=== PATIENT | female | born 1985 | race African-American/Black ===

== ENCOUNTER 2017-11-27 08:00 | Inpatient (IN) ==
[2017-11-27] MEDS ORDERED: LACTATED RINGERS 1,000 ML IV ONE (11:32)
[2017-11-27] MEDS ORDERED: FAMOTIDINE 20 MG/2 ML VIAL IV ONE (11:36)
[2017-11-27] MEDS ORDERED: diphenhydrAMINE 50 MG/1 ML VIAL IV PRN ×2 (11:36)
[2017-11-27] MEDS ORDERED: hydrOXYzine HCL 25 MG/1 ML VIAL IM PRN (11:36)
[2017-11-27] MEDS ORDERED: PROMETHAZINE 25 MG/1 ML VIAL IM ONE (11:36)
[2017-11-27] MEDS ORDERED: ePHEDrine 50 MG/ML AMP IV PRN ×2 (11:36)
[2017-11-27] MEDS ORDERED: CITRIC ACID/SODIUM CITRATE 30 ML UDCUP PO ONE (11:36)
[2017-11-27] MEDS ORDERED: ONDANSETRON 4 MG/2 ML VIAL IV PRN ×2 (11:40→21:30)
[2017-11-27] MEDS ORDERED: fentaNYL 2 MCG/ROPIV 0.2% EPID 150 ML EPIDURAL SCH (12:00)
[2017-11-27] MEDS ORDERED: OXYTOCIN/LR 20 UNIT/1,000 ML BAG IV SCH (12:00)
[2017-11-27 12:01] LABS: Basophils % 0.3 % (0.0-0.8); Eosinophils % 0.2 % (0.00-10.9); Hematocrit 33.3 VOL% (35.7-47.0); Hemoglobin 10.8 GM/DL (12.0-16.0); Immature Granulocytes % 1.4 %; Immature Granulocytes Absolute 0.16 #; Lymphocytes % 8.6 % (21.3-54.2); Mean Corpuscular HGB Conc 32.4 GM/DL (32-36); Mean Corpuscular Hemoglobin 28 PG (27-34); Mean Corpuscular Volume 87.2 FL (87-102); Monocytes # 0.8 10*3/uL (0.11-0.8); Monocytes % 7.2 % (1.7-12.7); Neutrophils # 9.3 10*3/uL (1.4-7.4); Neutrophils % 82.3 % (38.7-73.9); Platelet Count 260 T/CUMM (130-400); Red Blood Count 3.82 MC/CUMM (3.8-5.5); White Blood Count 11.3 T/CUMM (4-12)
[2017-11-27 12:34] LABS: Albumin 2.9 G/DL (3.4-5.0); Bilirubin,Total 0.6 MG/DL (0.2-1.0); Calcium 8.7 MG/DL (8.5-10.1); Osmolality,Calculated 274.5 MOS/KG (273-304); Potassium 4.3 MMOL/L (3.5-5.1); Total Protein 6.7 G/DL (6.4-8.3)
[2017-11-27] MEDS: LACTATED RINGERS 1,000 ML IV SCH ×2 (13:05→18:49)
[2017-11-27] MEDS: BUTORPHANOL 1 MG/ML VIAL IV PRN ×2 (13:06→15:22)
[2017-11-27] MEDS ORDERED: METHYLERGONOVINE 0.2 MG/1 ML AMP ONE (16:18)
[2017-11-27] MEDS ORDERED: miSOPROStol 200 MCG TABLET ONE (16:18)
[2017-11-27 21:23] LABS: Cord Arterial Blood HCO3 16.6 MMOL/L
[2017-11-27 21:26] LABS: Cord Venous Blood HCO3 18.2 MMOL/L; Cord Venous Blood PCO2 46.6 MMHG; Cord Venous Blood PO2 19.2
[2017-11-27] MEDS ORDERED: ACETAMINOPHEN 325 MG TABLET PO PRN (21:30)
[2017-11-27] MEDS ORDERED: OXYTOCIN/LR 20 UNIT/1,000 ML BAG IV ONE (21:30)
[2017-11-27] MEDS ORDERED: MEASLES/MUMPS/RUBELLA VACCINE 0.5 ML VIAL SUBCUT ONE (21:30)
[2017-11-27] MEDS ORDERED: BISACODYL 10 MG SUPP RECTAL PRN (21:30)
[2017-11-27] MEDS ORDERED: BENZOCAINE 20%/MENTHOL 0.5% SPRAY 56 GM CAN TOP PRN (21:30)
[2017-11-27] MEDS ORDERED: RHO(D) IMMUNE GLOBULIN 300 MCG SYRINGE IM ONE (21:30)
[2017-11-27] MEDS ORDERED: LANOLIN 50% CREAM 0.3 OZ TUBE TOP PRN (21:30)
[2017-11-27] MEDS ORDERED: IBUPROFEN 800 MG TABLET PO PRN (21:30)
[2017-11-27] MEDS ORDERED: oxyCODONE/ACETAMINOPHEN 5-325 MG TABLET PO PRN (21:30)
[2017-11-27] MEDS ORDERED: WITCH HAZEL PADS 100/JAR TOP PRN (21:30)
[2017-11-27] MEDS ORDERED: DIPH/TET/ACEL PERT BOOSTER VACCINE 0.5 ML VIAL IM ONE (21:30)
[2017-11-27] MEDS ORDERED: HYDROCORTISONE 2.5% RECTAL CREAM 30 GM TUBE TOP PRN (21:30)
[2017-11-28] MEDS: oxyCODONE/ACETAMINOPHEN 5-325 MG TABLET PO PRN ×3 (00:03→15:26)
[2017-11-28] MEDS: LACTATED RINGERS 1,000 ML IV SCH (01:26)
[2017-11-28 06:53] LABS: Basophils % 0.2 % (0.0-0.8); Hematocrit 26.9 VOL% (35.7-47.0); Hemoglobin 8.5 GM/DL (12.0-16.0); Immature Granulocytes % 0.9 %; Immature Granulocytes Absolute 0.18 #; Lymphocytes # 1.5 10*3/uL (1.4-4.0); Lymphocytes % 7.3 % (21.3-54.2); Mean Corpuscular HGB Conc 31.6 GM/DL (32-36); Mean Corpuscular Hemoglobin 28 PG (27-34); Mean Corpuscular Volume 88.5 FL (87-102); Mean Platelet Volume 12.2 FL (9.6-12.0); Monocytes # 1.6 10*3/uL (0.11-0.8); Monocytes % 7.5 % (1.7-12.7); Neutrophils # 17.7 10*3/uL (1.4-7.4); Neutrophils % 84.1 % (38.7-73.9); Platelet Count 205 T/CUMM (130-400); Red Blood Count 3.04 MC/CUMM (3.8-5.5); Red Cell Distribution Width 15.1 % (9.3-17.3)
[2017-11-28 07:26] LABS: Hypochromasia 2+; Lymphocytes 6 % (20-55); Platelet Estimate Adequate; Segmented Neutrophils 91 % (50-85); Total Cells Counted 100
[2017-11-28] MEDS ORDERED: FUROSEMIDE 20 MG/2 ML VIAL IV ONE (08:02)
[2017-11-28] MEDS: DOCUSATE SODIUM 100 MG CAPSULE PO SCH ×2 (17:49→21:04)
[2017-11-28] MEDS: MULTIVITAMIN (PRENATAL) TABLET PO SCH (17:49)
[2017-11-29] MEDS: oxyCODONE/ACETAMINOPHEN 5-325 MG TABLET PO PRN (02:33)
[2017-11-29 09:08] VITALS: BP 138/80
[2017-11-29] MEDS: MULTIVITAMIN (PRENATAL) TABLET PO SCH (10:17)
[2017-11-29] MEDS: DOCUSATE SODIUM 100 MG CAPSULE PO SCH (10:17)
== END 2017-11-29 12:15 | disposition home or self-care (01) | DRG 774 ==
LOC: N.LDOUT 08:00 → N.LD 08:07
PROVIDERS: ADMIT Specialist; ATTEND Specialist

== ENCOUNTER 2019-12-13 08:26 | Inpatient (IN) ==
[2019-12-13] MEDS ORDERED: MEPERIDINE 50 MG/1 ML VIAL IV PRN (09:12)
[2019-12-13] MEDS ORDERED: BUTORPHANOL 2 MG/ML VIAL IV PRN (09:12)
[2019-12-13] MEDS ORDERED: TERBUTALINE 1 MG/1 ML VIAL SUBCUT PRN (09:12)
[2019-12-13] MEDS ORDERED: ONDANSETRON 4 MG/2 ML VIAL IV PRN ×2 (09:12→14:48)
[2019-12-13] MEDS ORDERED: miSOPROStoL 200 MCG TABLET VAG PRN (09:12)
[2019-12-13] MEDS ORDERED: LIDOCAINE 1% 50 ML VIAL MISC INJ ONE (09:12)
[2019-12-13] MEDS ORDERED: CARBOPROST TROMETHAMINE 250 MCG/ML AMP IM PRN (09:12)
[2019-12-13] MEDS ORDERED: OXYTOCIN/LR 20 UNIT/1,000 ML BAG IV SCH (09:30)
[2019-12-13] MEDS ORDERED: LACTATED RINGERS 1,000 ML IV SCH (09:30)
[2019-12-13 09:49] LABS: Basophils % 0.2 % (0.0-0.8); Eosinophils % 0.3 % (0.00-10.9); Hemoglobin 10.5 GM/DL (12.0-16.0); Immature Granulocytes % 0.5 %; Immature Granulocytes Absolute 0.06 #; Lymphocytes # 1.3 10*3/uL (1.4-4.0); Lymphocytes % 11.6 % (21.3-54.2); Mean Corpuscular HGB Conc 31.8 GM/DL (32-36); Mean Corpuscular Volume 88.5 FL (87-102); Mean Platelet Volume 11.1 FL (9.6-12.0); Monocytes % 7.9 % (1.7-12.7); Neutrophils % 79.5 % (38.7-73.9); Platelet Count 249 T/CUMM (130-400); Red Blood Count 3.73 MC/CUMM (3.8-5.5); Red Cell Distribution Width 14.2 % (9.3-17.3); White Blood Count 11.6 T/CUMM (4-12)
[2019-12-13 10:07] LABS: Alanine Aminotransferase 10 U/L (13-56); Albumin 2.5 G/DL (3.4-5.0); Alkaline Phosphatase 186 U/L (45-117); Aspartate Amino Transferase 15 U/L (0-37); Bilirubin,Total < 0.39 MG/DL (0.2-1.0); Blood Urea Nitrogen 7 MG/DL (7-18); Calcium 9.1 MG/DL (8.5-10.1); Estimated Glom Filtration Rate 145 ML/MIN; Glucose 79 MG/DL (74-106); Osmolality,Calculated 264.2 MOS/KG (273-304); Total Protein 6.8 G/DL (6.4-8.3)
[2019-12-13] MEDS ORDERED: LACTATED RINGERS 1,000 ML IV ONE (10:41)
[2019-12-13] MEDS ORDERED: ePHEDrine 50 MG/ML AMP IV PRN (10:41)
[2019-12-13] MEDS ORDERED: FAMOTIDINE 20 MG/2 ML VIAL IV ONE (10:41)
[2019-12-13] MEDS ORDERED: CITRIC ACID/SODIUM CITRATE 30 ML UDCUP PO ONE (10:41)
[2019-12-13] MEDS ORDERED: fentaNYL 2 MCG/ROPIV 0.2% EPID 100 ML EPIDURAL ONE (10:52)
[2019-12-13] MEDS ORDERED: fentaNYL 2 MCG/ROPIV 0.2% EPID 100 ML EPIDURAL SCH (11:00)
[2019-12-13 13:49] LABS: Apearance,Urine Clear (Clear); Glucose,Urine (UA) Negative (Negative); Ketones,Urine 100 mg/dL (Negative); Mucus,Urine Occasional /LPF (Occasional); Nitrite,Urine Negative (Negative); Protein,Urine Negative; Squamous Epithelial Cell,Urine Occasional /HPF (0-10); Urine Color Yellow (Yellow)
[2019-12-13 13:50] LABS: Bilirubin,Urine Negative (Negative); Blood, Urine Negative (Negative); Urine Urobilinogen 0.2 EU/DL (0.2-1.0)
[2019-12-13] MEDS ORDERED: ACETAMINOPHEN 325 MG TABLET PO PRN (14:48)
[2019-12-13] MEDS ORDERED: HYDROCORTISONE 2.5% RECTAL CREAM 30 GM TUBE TOP PRN (14:48)
[2019-12-13] MEDS ORDERED: BENZOCAINE 20%/MENTHOL 0.5% SPRAY 56 GM CAN TOP PRN (14:48)
[2019-12-13] MEDS ORDERED: RHO(D) IMMUNE GLOBULIN 300 MCG SYRINGE IM ONE (14:48)
[2019-12-13] MEDS ORDERED: oxyCODONE/ACETAMINOPHEN 5-325 MG TABLET PO PRN ×2 (14:48)
[2019-12-13] MEDS ORDERED: BISACODYL 10 MG SUPP RECTAL PRN (14:48)
[2019-12-13] MEDS ORDERED: LANOLIN 50% CREAM 0.3 OZ TUBE TOP PRN (14:48)
[2019-12-13] MEDS ORDERED: OXYTOCIN/LR 20 UNIT/1,000 ML BAG IV ONE (14:48)
[2019-12-13] MEDS ORDERED: WITCH HAZEL PADS 100/JAR TOP PRN (14:48)
[2019-12-13] MEDS ORDERED: DIPH/TET/ACEL PERT BOOSTER VACCINE 0.5 ML VIAL IM ONE (14:48)
[2019-12-13] MEDS ORDERED: MEASLES/MUMPS/RUBELLA VACCINE 0.5 ML VIAL SUBCUT ONE (14:48)
[2019-12-13] MEDS: IBUPROFEN 800 MG TABLET PO PRN (20:54)
[2019-12-13] MEDS: DOCUSATE SODIUM 100 MG CAPSULE PO SCH (20:54)
[2019-12-14 04:59] LABS: Basophils % 0.2 % (0.0-0.8); Eosinophils # 0.1 10*3/uL (0.0-0.87); Eosinophils % 0.4 % (0.00-10.9); Hematocrit 27.6 VOL% (35.7-47.0); Hemoglobin 8.7 GM/DL (12.0-16.0); Immature Granulocytes % 0.4 %; Immature Granulocytes Absolute 0.07 #; Lymphocytes # 1.9 10*3/uL (1.4-4.0); Lymphocytes % 12.4 % (21.3-54.2); Mean Corpuscular HGB Conc 31.5 GM/DL (32-36); Mean Corpuscular Volume 90.2 FL (87-102); Monocytes % 8.3 % (1.7-12.7); Neutrophils % 78.3 % (38.7-73.9); Platelet Count 212 T/CUMM (130-400); Red Blood Count 3.06 MC/CUMM (3.8-5.5); Red Cell Distribution Width 14.4 % (9.3-17.3); White Blood Count 15.6 T/CUMM (4-12)
[2019-12-14] MEDS: IBUPROFEN 800 MG TABLET PO PRN ×2 (07:45→21:03)
[2019-12-14] MEDS: DOCUSATE SODIUM 100 MG CAPSULE PO SCH ×3 (07:45→21:03)
[2019-12-15 09:59] VITALS: BP 115/68
[2019-12-15] MEDS: DOCUSATE SODIUM 100 MG CAPSULE PO SCH (10:25)
== END 2019-12-15 12:05 | disposition home or self-care (01) | DRG 807 ==
LOC: N.LDOUT 08:26 → N.LD 08:50 → N.OB 18:30
PROVIDERS: ADMIT Specialist; ATTEND Specialist